=== PATIENT | male | born 1980 | race Native Hawaiian/Other Pacific Islander ===

== ENCOUNTER 2019-08-07 14:00 | Outpatient (CLI) | payer OTHER | END 2019-08-07 23:30 | disposition home or self-care (01) | LOC: US 14:00 | DX: M62.838 Other muscle spasm (principal) ==

== ENCOUNTER 2019-08-22 07:47 | Outpatient (CLI) | payer OTHER | END 2019-08-22 19:03 | disposition home or self-care (01) | LOC: MRI 07:47 | DX: M54.6 Pain in thoracic spine (principal) ==

== ENCOUNTER 2023-06-22 11:28 | Emergency (ER) | payer OTHER ==
[~2023-06-22] VITALS: Ht 182.9 cm; Wt 86.2 kg
[2023-06-22 11:33] VITALS: TEMP 98.2
[2023-06-22 12:21] VITALS: BP 126/90
== END 2023-06-22 12:21 | disposition home or self-care (01) ==
LOC: ED 11:28
DX: S60.212A Contusion of left wrist, initial encounter (principal); S63.502A Unspecified sprain of left wrist, initial encounter; X58.XXXA Exposure to other specified factors, initial encounter
CPT/HCPCS: 99282